=== PATIENT | male | born 1935 | race Caucasian/White ===

== ENCOUNTER 2016-12-03 15:13 | Emergency (ER) | payer MEDICARE, OTHER ==
[2016-12-03] MEDS ORDERED: Ipratropium 0.5MG/2.5ML NEB* 0.5 MG/2.5 ML NEB.SOLN INH ONE (16:04)
[2016-12-03] MEDS ORDERED: Albuterol 2.5 MG/3 ML NEB.SOL* (0.083%) INH ONE (16:04)
[2016-12-03] MEDS ORDERED: Acetaminophen TAB* 325 MG PO ONE (16:04)
--- NOTE | 2016-12-03 16:14 | UC ---
Respiratory Complaint HPI - HPI Summary HPI Summary: Pt c/o cough, fever, chest pain, SOB X 3 days. Feels worse today. Has history of pneumonia - History of Current Complaint Chief Complaint: UCRespiratory Stated Complaint: COUGH,FEVER Time Seen by Provider: 12/03/16 15:48 Hx Obtained From: Patient Onset/Duration: Gradual Onset, Lasting Days, Worse Since - onset Timing: Constant Severity Initially: Mild Severity Currently: Moderate Character: Cough: Productive - clear Aggravating Factors: Recumbent Position Alleviating Factors: Nothing Associated Signs And Symptoms: Positive: Fever, Chills, URI, Nasal Congestion - Risk Factors Pulmonary Embolism Risk Factors: Negative Cardiac Risk Factors: Hypertension, Elevated Lipids Pseudomonas Risk Factors: Negative - Allergies/Home Medications Allergies/Adverse Reactions: Allergies Allergy/AdvReac Type Severity Reaction Status Date / Time No Known Allergies Allergy Verified 12/03/16 15:46 Home Medications: Home Medications Ascorbic Acid TAB* [Vitamin C TAB*] 2,000 mg PO DAILY 12/03/16 [History Confirmed 12/03/16] Rx Nasal [place]* 12/03/16 [History] guaiFENesin ER TAB [Mucinex*] PRN 12/03/16 [History] PMH/Surg Hx/FS Hx/Imm Hx Previously Healthy: No - see PMH Endocrine History Of: Denies: Diabetes, Thyroid Disease Cardiovascular History Of: Reports: Hypertension - meds Denies: Cardiac Disorders, Pacemaker/ICD Respiratory History Of: Reports: Asthma - prior to WW II Denies: COPD GI/ History Of: Denies: Ulcer, Renal Disease - Surgical History Surgical History: Yes Surgery Procedure, Year, and Place: Bilateral Knees- REPLACEMENTS, [place]ig[place] Shawn, . SINUS - Family History Known Family History: Positive: Cardiac Disease, Hypertension - Social History Lives: With Family Alcohol Use: Occasionally Alcohol Amount: Glass of wine Substance Use Type: None Smoking Status (MU): Former Smoker Type: Cigarettes Amount Used/How Often: 1 PPD Length of Time of Smoking/Using Tobacco: 5-6 years Have You Smoked in the Last Year: No - Immunization History Most Recent Influenza Vaccination: 08/2014 Review of Systems Constitutional: Fever, Chills, Fatigue Skin: Negative Eyes: Negative ENT: Other - nasal congestion Respiratory: Shortness Of Breath, Cough Cardiovascular: Chest Pain Gastrointestinal: Negative Genitourinary: Negative Motor: Negative Neurovascular: Negative Musculoskeletal: Myalgia Neurological: Negative Psychological: Negative All Other Systems Reviewed And Are Negative: Yes Physical Exam Triage Information Reviewed: Yes Appearance: Ill-Appearing Vital Signs: Initial Vital Signs Temp 100.2 F 12/03/16 15:42 Pulse 85 12/03/16 15:42 Resp 20 12/03/16 15:42 BP 109/63 12/03/16 15:42 Pulse Ox 94 12/03/16 15:42 Vital Signs Reviewed: Yes ENT Exam: Other ENT: Positive: Nasal congestion Neck exam: Normal Respiratory: Positive: Decreased breath sounds - bilateral bases Cardiovascular Exam: Normal Musculoskeletal Exam: Normal Neurological Exam: Normal Psychological Exam: Normal Skin Exam: Normal UC Diagnostic Evaluation - Laboratory O2 Sat by Pulse Oximetry: 94 Respiratory Course/Dx - Course Course Of Treatment: I reviewed the EKG with the patient and though the EKG does not reveal an acute cardiac event we can not rule that out and have recommended that the pt seek care at the Emergency Department. - Differential Dx/Diagnosis Differential Diagnosis/HQI/PQRI: Pulmonary Embolism, Other - pneumonia, IA Provider Diagnoses: pneumonia. Chest pain - Physician Notification/Consults Discussed Patient Care With: Rosa Frias at [facility]. Time Discussed With Above Provider: 17:47 - pt accepted at [facility] ED Discharge - Discharge Plan Condition: Stable Disposition: HOME Prescriptions: Albuterol HFA INHALER* [Ventolin HFA Inhaler*] 1 - 2 puff INH Q4H PRN #1 mdi PRN Reason: Sob/Wheezing Azithromycin TAB* [Zithromax TAB (Z-TARI) 250 mg #6 tabs] 2 tab PO .TODAY, THEN 1 DAILY #1 tari predniSONE TAB* [Deltasone TAB*] 30 mg PO DAILY #12 tab Patient Education Materials: Pneumonia (ED) Referrals: Marissa Anderson [Primary Care Provider] - Additional Instructions: Please note that you have been recommend to go to the Emergency room for immediate follow up care.
--- NOTE | 2016-12-03 16:31 | RAD ---
INDICATION: Cough and fever. COMPARISON: Comparison is made with a prior chest x-ray study from April 24, 2015. TECHNIQUE: Dual-energy PA and lateral views of the chest were obtained. FINDINGS: The heart is within normal limits in size. Mediastinal and hilar contours appear within normal limits. The lungs are underinflated. There are small bibasilar infiltrates. No pleural effusion is seen. There is flattening of the diaphragms consistent with chronic character pulmonary disease. IMPRESSION: EXPIRATORY EXAM, SMALL BIBASILAR INFILTRATES.
[2016-12-03] MEDS ORDERED: Azithromycin TAB* 250 MG PO ONE (16:56)
[2016-12-03 17:24] VITALS: BP 130/56
== END 2016-12-03 17:10 | disposition left against medical advice (07) ==
LOC: UCEAST 15:13
DX: J18.9 Pneumonia, unspecified organism (principal); R07.89 Other chest pain; I10 Essential (primary) hypertension; Z96.653 Presence of artificial knee joint, bilateral; Z87.891 Personal history of nicotine dependence
CPT/HCPCS: 71020; 93005; 99213; A9270-GY; G0463; J7644

== ENCOUNTER → 2016-12-03 18:00 | Emergency (ER) | payer MEDICARE, OTHER ==
[~2016-12-03 18:00] MED LIST: Aspirin Low Dose CHEW TAB* 81 MG PO ONE; methylPREDNISolone 125 MG* 2 ML VIAL IV ONE
[2016-12-03 18:59] LABS: Hematocrit 42 % (42-52); Mean Corpuscular HGB Conc 33 g/dl (31-36); Mean Corpuscular Hemoglobin 29 pg (27-31); Mean Corpuscular Volume 89 fL (80-94); Mean Platelet Volume 8 um3 (7.4-10.4); Red Blood Count 4.76 10^6/ul (4.0-5.4); Red Cell Distribution Width 15 % (10.5-15); White Blood Count 6.4 10^3/ul (3.5-10.8)
[2016-12-03 19:12] LABS: Albumin 3.9 g/dL (3.2-5.2); BUN/Creatinine Ratio 13.7 (8-20); EGFR African American 89.9 (>60); EGFR Non-African American 69.9 (>60); Globulin 2.4 g/dL (2-4); Potassium 3.9 mmol/L (3.5-5.0); Total Bilirubin 0.6 mg/dL (0.2-1.0); Total Protein 6.3 g/dL (6.4-8.9); Troponin I 0.01 ng/mL (<0.04)
--- NOTE | 2016-12-03 20:09 | ED ---
Primo Bonner Janilya, scribed for Karlos Rabago MD on 12/03/16 at 1840 . Respiratory - HPI Summary HPI Summary: A 81 y/o male came in to [facility] presenting w/ a gradual onset of constant CP due to severe cough starting 4-5 days. Pt reports his chest feels painful and it is "a struggle to cough things up". Pt has a cough that produces clear, white, and sometimes yellowish phlegm. In addition, pt reports fever. Pt visited [facility] and had CXR and EKG done. There, he was diagnosed with pneumonia. Pt was recommended a breathing nebulizer, which he used. It alleviated his condition. Pt feels better now; his CP is "diminishing rapidly". PMHx asthma, for which pt uses inhaler. - History of Current Complaint Chief Complaint: EDChestPainROMI Stated Complaint: CHEST PAIN/CONV CARE Time Seen by Provider: 12/03/16 18:26 Hx Obtained From: Patient Onset/Duration: Gradual Onset, Lasting Days, Still Present Initial Severity: Moderate Current Severity: Moderate Pain Intensity: 0 Character: Cough (Productive) Sputum Color: Clear, White, Yellow Aggravating Factor(s): Nothing Alleviating Factor(s): Oxygen Associated Signs and Symptoms: Fever, Chest Pain with Cough - Allergy/Home Medications Allergies/Adverse Reactions: Allergies Allergy/AdvReac Type Severity Reaction Status Date / Time No Known Allergies Allergy Verified 12/03/16 15:46 PMH/Surg Hx/FS Hx/Imm Hx Endocrine/Hematology History: Denies: Hx Diabetes, Hx Thyroid Disease Cardiovascular History: Reports: Hx Hypertension - meds Denies: Hx Pacemaker/ICD Respiratory History: Reports: Hx Asthma - prior to WW II Denies: Hx Chronic Obstructive Pulmonary Disease (COPD) GI History: Denies: Hx Ulcer History: Denies: Hx Renal Disease Sensory History: Denies: Hx Hearing Aid Psychiatric History: Denies: Hx Panic Disorder - Cancer History Cancer Type, 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 SINUS Infectious Disease History: No Infectious Disease History: Denies: Hx Clostridium Difficile, Hx Hepatitis, Hx Human Immunodeficiency Virus (HIV), Hx of Known/Suspected MRSA, Hx Shingles, Hx Tuberculosis, Hx Known/ Suspected VRE, Hx Known/Suspected VRSA, History Other Infectious Disease, Traveled Outside the [place] in Last 30 Days - Family History Known Family History: Positive: Cardiac Disease, Hypertension - Social History Alcohol Use: Occasionally Alcohol Amount: Glass of wine Substance Use Type: Reports: None Smoking Status (MU): Former Smoker Type: Cigarettes Amount Used/How Often: 1 PPD Length of Time of Smoking/Using Tobacco: 5-6 years Have You Smoked in the Last Year: No Review of Systems Positive: Fever Positive: Chest Pain Positive: Cough All Other Systems Reviewed And Are Negative: Yes Physical Exam Triage Information Reviewed: Yes Vital Signs On Initial Exam: Initial Vitals Temp Pulse Resp BP Pulse Ox 99.2 F 95 16 141/65 95 12/03/16 18:04 12/03/16 18:04 12/03/16 18:04 12/03/16 18:04 12/03/16 18:04 Vital Signs Reviewed: Yes Appearance: Positive: Well-Appearing, No Pain Distress Skin: Positive: Warm, Skin Color Reflects Adequate Perfusion, Dry Head/Face: Positive: Normal Head/Face Inspection Eyes: Positive: Normal ENT: Positive: Normal ENT inspection Neck: Positive: Supple, Nontender Respiratory/Lung Sounds: Positive: Clear to Auscultation, Breath Sounds Present Cardiovascular: Positive: RRR Abdomen Description: Positive: Nontender, Soft Bowel Sounds: Positive: Present Musculoskeletal: Positive: Normal Neurological: Positive: Normal Psychiatric: Positive: Normal, Affect/Mood Appropriate Diagnostics - Vital Signs Vital Signs Temp Pulse Resp BP Pulse Ox 12/03/16 18:24 88 13 93 12/03/16 18:22 119/43 12/03/16 18:04 99.2 F 95 16 141/65 95 - Laboratory Lab Results: Lab Results 12/03/16 12/03/16 12/03/16 Range/Units 18:25 18:25 18:25 WBC 6.4 (3.5-10.8) 10^3/ul RBC 4.76 (4.0-5.4) 10^6/ul Hgb 14.0 (14.0-18.0) g/dl Hct 42 (42-52) % MCV 89 (80-94) fL MCH 29 (27-31) pg MCHC 33 (31-36) g/dl RDW 15 (10.5-15) % Plt Count 166 (150-450) 10^3/ul MPV 8 (7.4-10.4) um3 Neut % (Auto) 63.0 (38-83) % Lymph % (Auto) 23.7 L (25-47) % Kerr % (Auto) 9.4 H (1-9) % Eos % (Auto) 3.3 (0-6) % Baso % (Auto) 0.6 (0-2) % Absolute Neuts (auto) 4.0 (1.5-7.7) 10^3/ul Absolute Lymphs (auto) 1.5 (1.0-4.8) 10^3/ul Absolute Monos (auto) 0.6 (0-0.8) 10^3/ul Absolute Eos (auto) 0.2 (0-0.6) 10^3/ul Absolute Basos (auto) 0 (0-0.2) 10^3/ul Absolute Nucleated RBC 0 10^3/ul Nucleated RBC % 0.1 Sodium 137 (133-145) mmol/L Potassium 3.9 (3.5-5.0) mmol/L Chloride 106 (101-111) mmol/L Carbon Dioxide 24 (22-32) mmol/L Anion Gap 7 (2-11) mmol/L BUN 14 (6-24) mg/dL Creatinine 1.02 (0.67-1.17) mg/dL Est GFR ( Amer) 89.9 (>60) Est GFR (Non-Af Amer) 69.9 (>60) BUN/Creatinine Ratio 13.7 (8-20) Glucose 176 H (70-100) mg/dL Lactic Acid 1.4 (0.5-2.0) mmol/L Calcium 9.0 (8.6-10.3) mg/dL Total Bilirubin 0.60 (0.2-1.0) mg/dL AST 22 (13-39) U/L ALT 16 (7-52) U/L Alkaline Phosphatase 44 (34-104) U/L Troponin I 0.01 (<0.04) ng/mL B-Natriuretic Peptide ( - 100) pg/mL Total Protein 6.3 L (6.4-8.9) g/dL Albumin 3.9 (3.2-5.2) g/dL Globulin 2.4 (2-4) g/dL Albumin/Globulin Ratio 1.6 (1-3) 12/03/16 Range/Units 18:25 WBC (3.5-10.8) 10^3/ul RBC (4.0-5.4) 10^6/ul Hgb (14.0-18.0) g/dl Hct (42-52) % MCV (80-94) fL MCH (27-31) pg MCHC (31-36) g/dl RDW (10.5-15) % Plt Count (150-450) 10^3/ul MPV (7.4-10.4) um3 Neut % (Auto) (38-83) % Lymph % (Auto) (25-47) % Kerr % (Auto) (1-9) % Eos % (Auto) (0-6) % Baso % (Auto) (0-2) % Absolute Neuts (auto) (1.5-7.7) 10^3/ul Absolute Lymphs (auto) (1.0-4.8) 10^3/ul Absolute Monos (auto) (0-0.8) 10^3/ul Absolute Eos (auto) (0-0.6) 10^3/ul Absolute Basos (auto) (0-0.2) 10^3/ul Absolute Nucleated RBC 10^3/ul Nucleated RBC % Sodium (133-145) mmol/L Potassium (3.5-5.0) mmol/L Chloride (101-111) mmol/L Carbon Dioxide (22-32) mmol/L Anion Gap (2-11) mmol/L BUN (6-24) mg/dL Creatinine (0.67-1.17) mg/dL Est GFR ( Amer) (>60) Est GFR (Non-Af Amer) (>60) BUN/Creatinine Ratio (8-20) Glucose (70-100) mg/dL Lactic Acid (0.5-2.0) mmol/L Calcium (8.6-10.3) mg/dL Total Bilirubin (0.2-1.0) mg/dL AST (13-39) U/L ALT (7-52) U/L Alkaline Phosphatase (34-104) U/L Troponin I (<0.04) ng/mL B-Natriuretic Peptide 35 ( - 100) pg/mL Total Protein (6.4-8.9) g/dL Albumin (3.2-5.2) g/dL Globulin (2-4) g/dL Albumin/Globulin Ratio (1-3) Result Diagrams: 12/03/16 18:25 12/03/16 18:25 Lab Statement: Any lab studies that have been ordered have been reviewed, and results considered in the medical decision making process. - EKG 1622 Cardiac Rate: NL - at 84 bpm EKG Rhythm: Sinus Rhythm Disposition - Course Course Of Treatment: Wilbur Paiz Presented with a few days of coughing and was specifically C/O having more and more chest pain with coughing. He was seen at [facility] and given a nebulized and feels a lot better and says his chest feels better. He was given his first dose of steroids IV here and his trop was negative. - Diagnoses Provider Diagnoses: Pneumonia, Chest wall pain Discharge - Discharge Plan Condition: Stable Disposition: HOME Patient Education Materials: Pneumonia (ED), Chest Pain (ED) Referrals: Amy Velazquez MD [Primary Care Provider] - Additional Instructions: Follow up with your primary care provider if symptoms persist or worsen. The documentation as recorded by the Primo bolden Janilya accurately reflects the service I personally performed and the decisions made by me, Karlos Rabago MD.
[2016-12-03 20:40] VITALS: BP 117/62
== END | disposition home or self-care (01) ==
LOC: ED 18:00
DX: J18.9 Pneumonia, unspecified organism (principal); R07.89 Other chest pain; R05 Cough; R07.9 Chest pain, unspecified; Z87.891 Personal history of nicotine dependence
CPT/HCPCS: 36415; 71020; 80053; 83605; 83880; 84484; 85025; 93005; 96374; 99213; 99283; A9270-GY; G0463; J2930; J7644

== ENCOUNTER 2016-12-11 11:56 | Emergency (ER) | payer MEDICARE, OTHER ==
[2016-12-11 13:38] VITALS: BP 138/64
--- NOTE | 2016-12-11 14:08 | RAD ---
INDICATION: Choking episode. COMPARISON: Comparison is made with a prior chest x-ray study from December 03, 2016. TECHNIQUE: Dual-energy PA and lateral views of the chest were obtained. FINDINGS: The heart is upper limits of normal in size and unchanged from the prior exam. The lungs are clear. There is flattening of the diaphragms consistent with chronic obstructive pulmonary disease. No pleural effusion is seen. IMPRESSION: FINDINGS CONSISTENT WITH COPD, NO EVIDENCE FOR ACUTE FINDING.
--- NOTE | 2016-12-11 19:50 | ED ---
Leobardo Bonner Adam, scribed for Karlos Rabago MD on 12/11/16 at 1300 . Respiratory - HPI Summary HPI Summary: Pt is an 81 year old male presenting with an episode of aspiration this morning. He states that he was taking his regular medication between 11:00 and 12:00 when he swallowed a pill and began coughing. He states that he coughed up some yellow substance which matched the color of the pill, but he is concerned that there could still be something lodged in his throat. He is also feeling more congested since the episode of coughing. - History of Current Complaint Chief Complaint: EDRespiratoryDistress Stated Complaint: MEDS POSS STUCK IN THROAT Time Seen by Provider: 12/11/16 12:48 Hx Obtained From: Patient Onset/Duration: Sudden Onset, Lasting Minutes, Resolved Initial Severity: Moderate Current Severity: None Pain Intensity: 0 Character: Cough (Productive) Sputum Amount: Small Sputum Color: Clear Aggravating Factor(s): Nothing Alleviating Factor(s): Nothing - Allergy/Home Medications Allergies/Adverse Reactions: Allergies Allergy/AdvReac Type Severity Reaction Status Date / Time No Known Allergies Allergy Verified 12/03/16 15:46 PMH/Surg Hx/FS Hx/Imm Hx Endocrine/Hematology History: Denies: Hx Diabetes, Hx Thyroid Disease Cardiovascular History: Reports: Hx Hypertension - meds Denies: Hx Pacemaker/ICD Respiratory History: Reports: Hx Asthma - prior to WW II Denies: Hx Chronic Obstructive Pulmonary Disease (COPD) GI History: Denies: Hx Ulcer History: Denies: Hx Renal Disease Sensory History: Denies: Hx Hearing Aid Psychiatric History: Denies: Hx Panic Disorder - Cancer History Cancer Type, 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 SINUS Infectious Disease History: No Infectious Disease History: Denies: Hx Clostridium Difficile, Hx Hepatitis, Hx Human Immunodeficiency Virus (HIV), Hx of Known/Suspected MRSA, Hx Shingles, Hx Tuberculosis, Hx Known/ Suspected VRE, Hx Known/Suspected VRSA, History Other Infectious Disease, Traveled Outside the [place] in Last 30 Days - Family History Known Family History: Positive: Cardiac Disease, Hypertension - Social History Occupation: Retired Lives: With Family Alcohol Use: Occasionally Alcohol Amount: Glass of wine Hx Substance Use: No Substance Use Type: Reports: None Hx Tobacco Use: Yes Smoking Status (MU): Former Smoker Type: Cigarettes Amount Used/How Often: 1 PPD Length of Time of Smoking/Using Tobacco: 5-6 years Have You Smoked in the Last Year: No Review of Systems Positive: Other - Congestion Positive: Cough, Other - Aspirated on pill All Other Systems Reviewed And Are Negative: Yes Physical Exam Triage Information Reviewed: Yes Vital Signs On Initial Exam: Initial Vitals Temp Pulse Resp BP Pulse Ox 97.9 F 87 20 143/66 94 12/11/16 12:06 12/11/16 12:06 12/11/16 12:06 12/11/16 12:06 12/11/16 12:06 Vital Signs Reviewed: Yes Appearance: Positive: Well-Appearing, No Pain Distress Skin: Positive: Warm, Skin Color Reflects Adequate Perfusion, Dry Head/Face: Positive: Normal Head/Face Inspection Eyes: Positive: Normal ENT: Positive: Normal ENT inspection Neck: Positive: Supple, Nontender Respiratory/Lung Sounds: Positive: Clear to Auscultation, Breath Sounds Present Cardiovascular: Positive: RRR Abdomen Description: Positive: Nontender, Soft Bowel Sounds: Positive: Present Musculoskeletal: Positive: Normal Neurological: Positive: Normal Psychiatric: Positive: Normal, Affect/Mood Appropriate - Guzman Coma Scale Coma Scale Total: 15 Diagnostics - Vital Signs Vital Signs Temp Pulse Resp BP Pulse Ox 12/11/16 12:13 20 12/11/16 12:06 97.9 F 87 20 143/66 94 - Laboratory Lab Statement: Any lab studies that have been ordered have been reviewed, and results considered in the medical decision making process. - Radiology CXR Radiology Interpretation Completed By: Radiologist - IMPRESSION: FINDINGS CONSISTENT WITH COPD, NO EVIDENCE FOR ACUTE FINDING. Disposition - Course Course Of Treatment: Mr. Paiz apparently aspirated a turmeric gel cap and had some paroxismal coughing bring up yellow sputum and some plastic like pieces. He feels a lot better now and his CXR is normal. I will D/C him for expectant treatment and we discussed fever etc. - Diagnoses Provider Diagnoses: Aspiration Discharge - Discharge Plan Condition: Stable Disposition: HOME Patient Education Materials: Dyspnea (ED) Referrals: Amy Velazquez MD [Primary Care Provider] - Additional Instructions: Follow up with Dr. Velazquez. The documentation as recorded by the Leobardo bolden Adam accurately reflects the service I personally performed and the decisions made by me, Karlos Rabago MD.
== END 2016-12-11 14:52 | disposition home or self-care (01) ==
LOC: ED 11:56
DX: R05 Cough (principal); J44.9 Chronic obstructive pulmonary disease, unspecified; Z87.891 Personal history of nicotine dependence
CPT/HCPCS: 71020; 99283

== ENCOUNTER 2017-10-26 08:39 | Emergency (ER) | payer MEDICARE, OTHER ==
[2017-10-26 10:40] VITALS: BP 109/63
--- NOTE | 2017-10-26 11:04 | UC ---
Respiratory Complaint HPI - HPI Summary HPI Summary: 2 DAYS OF WORSENING COUGH AND CONGESTION. NO FEVER, EAR PAIN, N/V/D. REPORTS HE HAS A TENDENCY TO PROGRESS TO "WALKING PNEUMONIA" AND IS CONCERNED THIS WILL HAPPEN AGAIN WITH THIS ILLNESS. - History of Current Complaint Chief Complaint: UCRespiratory Stated Complaint: CHEST CONGESTION Time Seen by Provider: 10/26/17 10:53 Hx Obtained From: Patient Onset/Duration: Gradual Onset, Lasting Days, Still Present Timing: Constant Severity Initially: Moderate Severity Currently: Moderate Pain Intensity: 0 Pain Scale Used: 0-10 Numeric Character: Cough: Productive Aggravating Factors: Nothing Alleviating Factors: Nothing Associated Signs And Symptoms: Positive: URI, Nasal Congestion. Negative: Dyspnea, Fever, Pleuritic Chest Pain, Wheezing - Allergies/Home Medications Allergies/Adverse Reactions: Allergies Allergy/AdvReac Type Severity Reaction Status Date / Time No Known Allergies Allergy Verified 10/26/17 08:48 Home Medications: Home Medications Albuterol HFA INHALER* [Ventolin HFA Inhaler*] 1 puff INH Q6HR PRN 10/26/17 [ History Confirmed 10/26/17] Ascorbic Acid TAB* [Vitamin C TAB*] 500 mg PO DAILY 10/26/17 [History Confirmed 10/26/17] Aspirin EC Low Dose* [Ecotrin EC Low Dose 81 MG*] 81 mg PO DAILY 10/26/17 [ History Confirmed 10/26/17] Rosuvastatin Calcium [Crestor] 20 mg PO DAILY 10/26/17 [History Confirmed ] Sertraline* [Zoloft*] 100 mg PO BEDTIME 10/26/17 [History Confirmed 10/26/17] Telmisartan [Micardis] 0.5 mg PO DAILY 10/26/17 [History Confirmed 10/26/17] PMH/Surg Hx/FS Hx/Imm Hx Cardiovascular History: Hypertension - Surgical History Surgical History: Yes Surgery Procedure, Year, and Place: Bilateral Knees- REPLACEMENTS, Lantigua Shanw, . SINUS - Family History Known Family History: Positive: Cardiac Disease, Hypertension - Social History Alcohol Use: Occasionally Alcohol Amount: Glass of wine Substance Use Type: None Smoking Status (MU): Former Smoker Type: Cigarettes Amount Used/How Often: 1 PPD Length of Time of Smoking/Using Tobacco: 5-6 years Have You Smoked in the Last Year: No - Immunization History Most Recent Influenza Vaccination: 08/2014 Review of Systems Constitutional: Negative ENT: Nasal Discharge Respiratory: Cough Cardiovascular: Negative Gastrointestinal: Negative Neurological: Headache All Other Systems Reviewed And Are Negative: Yes Physical Exam Triage Information Reviewed: Yes Appearance: Well-Appearing, No Pain Distress, Well-Nourished Vital Signs: Initial Vital Signs Temp 97 F 10/26/17 08:53 Pulse 79 10/26/17 08:53 Resp 16 10/26/17 08:53 BP 118/53 10/26/17 08:53 Pulse Ox 100 10/26/17 08:53 Vital Signs Reviewed: Yes Eyes: Positive: Conjunctiva Clear ENT: Positive: Hearing grossly normal, Pharynx normal, TMs normal Neck: Positive: Supple, Nontender, No Lymphadenopathy Respiratory Exam: Normal Cardiovascular Exam: Normal Abdomen Description: Positive: Soft Musculoskeletal: Positive: No Edema Neurological: Positive: Alert Psychological: Positive: Age Appropriate Behavior Skin: Negative: rashes UC Diagnostic Evaluation - Laboratory O2 Sat by Pulse Oximetry: 97 Respiratory Course/Dx - Differential Dx/Diagnosis Provider Diagnoses: ACUTE URI Discharge - Discharge Plan Condition: Stable Disposition: HOME Prescriptions: Azithromycin [Azithromycin 500 MG TAB] 500 mg PO DAILY #5 tab Patient Education Materials: Upper Respiratory Infection (ED), Acute Bronchitis (ED) Referrals: Amy Velazquez MD [Primary Care Provider] - If Needed Additional Instructions: YOUR SYMPTOMS MAY BE VIRALLY MEDIATED BUT GIVEN YOUR HISTORY AND CONCERN FOR PROGRESSION TO PNEUMONIA WE WILL COVER YOU WITH ANTIBIOTICS. IF YOU START THE MEDICINE BE SURE TO TAKE IT FOR THE FULL COURSE. REST, HYDRATE, OTC MEDS NEEDED. SEEK FOLLOW-UP WITH YOUR PCP IF YOU ARE NOT IMPROVING OVER THE NEXT 1-2 WEEKS.
== END 2017-10-26 11:24 | disposition home or self-care (01) ==
LOC: UCEAST 08:39
DX: J06.9 Acute upper respiratory infection, unspecified (principal); Z72.89 Other problems related to lifestyle; Z87.891 Personal history of nicotine dependence
CPT/HCPCS: 99212; G0463

== ENCOUNTER 2017-11-27 17:28 | Observation (INO) | payer MEDICARE, OTHER ==
[2017-11-27] MEDS ORDERED: Nitroglycerin TAB 0.4 MG* 0.4 MG TAB SL ONE (17:51)
[2017-11-27] MEDS ORDERED: Aspirin TAB* 325 MG PO ONE (17:51)
[2017-11-27 19:12] LABS: ABS Basophils 0 10^3/ul (0-0.2); ABS Eosinophils 0.1 10^3/ul (0-0.6); ABS Lymphocytes 2.1 10^3/ul (1.0-4.8); ABS Monocytes 0.7 10^3/ul (0-0.8); ABS Neutrophils 5.2 10^3/ul (1.5-7.7); ABS Nucleated RBC 0 10^3/ul; Eosinophil % 1.6 % (0-6); Hematocrit 43 % (42-52); Hemoglobin 14.7 g/dl (14.0-18.0); Lymphocyte % 25.9 % (25-47); Mean Corpuscular HGB Conc 35 g/dl (31-36); Mean Corpuscular Hemoglobin 31 pg (27-31); Mean Corpuscular Volume 88 fL (80-94); Mean Platelet Volume 8 um3 (7.4-10.4); Nucleated Red Blood Cells % 0; Platelet Count 196 10^3/ul (150-450); Red Blood Count 4.82 10^6/ul (4.0-5.4); Red Cell Distribution Width 15 % (10.5-15); White Blood Count 8.1 10^3/ul (3.5-10.8)
--- NOTE | 2017-11-27 19:19 | RAD ---
INDICATION: 2-3 days of fluctuating blood pressure and chest pressure COMPARISON: Chest x-ray dated November 06, 2017 TECHNIQUE: Single AP portable view of the chest was obtained. FINDINGS: Image quality is compromised due to the relative inferiority of a portable chest x-ray. The heart and mediastinum exhibit normal size and contour. The lungs are grossly clear. There is no evidence of a large pleural effusion. Visualized bones are normal for the patient's age. IMPRESSION: No radiographic evidence for acute cardiopulmonary abnormality on this portable chest x-ray.
[2017-11-27 19:30] LABS: EGFR Non-African American 89.7 (>60)
[2017-11-27] MEDS ORDERED: Acetaminophen TAB* 325 MG PO PRN (21:46)
[2017-11-27] MEDS ORDERED: Nitroglycerin TAB 0.4 MG* 0.4 MG TAB SL PRN (21:49)
[2017-11-27] MEDS: Heparin VIAL(*) 5000 UNITS/ML VIAL (FIVE THOUSAND) SUBCUT SCH (23:00)
[2017-11-27] MEDS ORDERED: NS 0.9% 1000 ML* 1,000 ML IV SCH (23:59)
--- NOTE | 2017-11-28 00:34 | HP ---
CC: Dr. Amy Velazquez * ADMISSION HISTORY AND PHYSICAL: DATE OF ADMISSION: 11/27/17 PRIMARY CARE PROVIDER: Dr. Amy Velazquez. MY ATTENDING WHILE IN THE HOSPITAL: Dr. Kolton Jacome.* (DICTATED BY LIVIA MAJOR) CHIEF COMPLAINT: Chest pain x2 days. HISTORY OF PRESENT ILLNESS: The patient is an 82-year-old male with past medical history significant for hypertension, hypothyroidism, hyperlipidemia, impaired glucose tolerance and depression, who presents with 2 days of constant chest tightness with occasional shortness of breath, not brought on by exertion. The patient, however, is dizzy in the morning when he stands up, but it is not persistent. The patient also has intermittent palpitations, worst this afternoon. The patient feels like his heart occasionally skips a beat. The patient recently had changes in his medications, which we cannot describe, but when discussing his medications with him, he said that he believes he was starting the losartan and Crestor. The patient denies other symptoms to go along with chest pain including nausea, vomiting, diaphoresis. The patient had a recent hemoglobin A1c and lipid panel through his primary care provider, but does not remember the results. The patient has no other symptoms. The patient has no past medical history of myocardial infarction or chest pain. PAST MEDICAL HISTORY: Hypertension, depression, hypothyroidism, hyperlipidemia , and impaired glucose tolerance. PAST SURGICAL HISTORY: Bilateral knee replacements, sinus surgery. MEDICATIONS: 1. Aspirin 81 mg p.o. daily. 2. Losartan 50 mg p.o. daily. 3. Synthroid 25 mcg p.o. daily. 4. Metoprolol 50 mg p.o. b.i.d. 5. Sertraline 100 mg p.o. daily. 6. Crestor 10 mg p.o. daily. 7. Celadrin. 8. Multivitamin. ALLERGIES: No known drug allergies. FAMILY HISTORY: The patient's father had heart disease. The patient's mother had ovarian cancer and of that. The patient does not have any other family history that he can think of. SOCIAL HISTORY: The patient was a former smoker, but quit 60 years ago. The patient used to drink a glass of wine a night, but no longer does in an attempt to lose weight. The patient denies any illicit drug use. 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 The patient is and has 2 children. REVIEW OF SYSTEMS: A 14-point review of systems was conducted and is negative except as above. PHYSICAL EXAMINATION GENERAL: The patient is an 82-year-old male who appears stated age and sitting comfortably in bed, in no acute distress. VITAL SIGNS: Temperature 99.2, heart rate 78, respiratory rate 20, oxygen saturation 97% on room air, and blood pressure 155/64. HEENT: Head: Normocephalic, atraumatic. Sclerae anicteric. No conjunctival injection. Nasal mucosa moist. Oral mucosa moist. No pharyngeal erythema, exudate, or discharge. NECK: Supple, nontender. No lymphadenopathy. No carotid bruit auscultated. RESPIRATORY: Clear to auscultation bilaterally. No wheezes, rales, or rhonchi. CARDIAC: Regular rate and rhythm. No clicks, murmurs, gallops, or rubs. Pulses 2+ in the bilateral dorsalis pedis, posterior tibialis, and radial areas. ABDOMEN: Soft, nontender, distended without tenderness. Bowel sounds present and normoactive in all 4 quadrants. No hepatosplenomegaly. No abdominal bruits auscultated. EXTREMITIES: No edema noted in bilateral lower extremities. NEUROLOGIC: Cranial nerves II through XII grossly intact. No focal deficits. SKIN: Clean, dry, and intact. Significant burden of seborrhoic keratosis. No rash. PSYCHIATRIC: Pleasant and cooperative. LABORATORY DATA: White blood cell count 8.1, hemoglobin 14.7, hematocrit 43, MCV 88, MCH 31, MCHC 35, RDW 15, platelet count 196. Sodium 138, potassium 4.5 , chloride 105, carbon dioxide 28, anion gap 5, BUN 19, creatinine 0.82, glucose 92, lactic acid 0.8, calcium 9.1. Bilirubin 0.5, AST 17, ALT 13, alkaline phosphatase 46. Troponin-I 0.00 x2. Total protein 6.1, albumin 3.7, globulin 2.4, albumin/globulin ratio 1.5. DIAGNOSTIC STUDIES: Electrocardiogram shows normal sinus rhythm, single PVC, no ST segment changes. No abnormalities. Tele in the room shows frequent PVCs. Chest x- ray shows no radiographic evidence for acute cardiopulmonary abnormality. IMPRESSION: The patient is an 82-year-old male with past medical history significant for hypertension, hyperlipidemia, impaired glucose tolerance, who presents with 2 days of chest pain without palliating and provoking factors. The patient has significant risk factors for coronary artery disease based on age, lipid profile and aspirin use and impaired glucose tolerance. The patient will be admitted overnight for telemetry monitoring and a nuclear stress test in the morning. ASSESSMENT AND PLAN: 1. Chest pain. The patient's chest pain sounds suspicious for cardiac origin. The patient received aspirin while in the emergency room and nitroglycerin, which helped to relieve his pain. The patient will be continued on aspirin, will have nitroglycerin available as needed. The patient is currently chest pain free. The patient will have a nuclear medicine stress test done in the morning to assess for ischemia. The patient's metoprolol will be held. 2. Hypertension. The patient is borderline hypertensive intermittently while in the emergency room. Continue losartan, hold metoprolol. 3. Hyperlipidemia. Continue Crestor and I will substitute to Lipitor. 4. Hypothyroidism. Continue Synthroid. 5. Depression. Continue sertraline. The patient is currently euthymic. 6. DVT prophylaxis. Heparin subcu. The patient is a high risk. 7. FEN. The patient will have a heart healthy diet without caffeine, followed by n.p.o. after midnight with fluids at 75 mL an hour. 8. Code status. The patient would like to be a DNR. The patient's MOLST filled out and on the chart. The patient's , Natali Turcios is his surrogate decision maker. 9. Disposition. The patient is admitted to observation to telemetry for a stress test. TIME SPENT: Approximately 60 minutes were spent on this admission, 30 of which were spent [id number] with the patient obtaining history and physical and discussing treatment plan. This plan was discussed with my attending, Dr. Kolton Jacome and he is in agreement. LIVIA MAJOR [id number]/[facility] #: [id number] MTDDaisy
[2017-11-28] MEDS: Heparin VIAL(*) 5000 UNITS/ML VIAL (FIVE THOUSAND) SUBCUT SCH ×2 (05:37→13:37)
[2017-11-28 05:58] LABS: ABS Basophils 0 10^3/ul (0-0.2); ABS Eosinophils 0.2 10^3/ul (0-0.6); ABS Lymphocytes 1.7 10^3/ul (1.0-4.8); ABS Monocytes 0.5 10^3/ul (0-0.8); ABS Nucleated RBC 0 10^3/ul; Eosinophil % 2.9 % (0-6); Hematocrit 41 % (42-52); Hemoglobin 13.8 g/dl (14.0-18.0); Lymphocyte % 31.3 % (25-47); Mean Corpuscular HGB Conc 34 g/dl (31-36); Mean Corpuscular Hemoglobin 30 pg (27-31); Mean Corpuscular Volume 89 fL (80-94); Mean Platelet Volume 8 um3 (7.4-10.4); Nucleated Red Blood Cells % 0; Platelet Count 173 10^3/ul (150-450); Red Blood Count 4.58 10^6/ul (4.0-5.4); Red Cell Distribution Width 15 % (10.5-15); White Blood Count 5.3 10^3/ul (3.5-10.8)
[2017-11-28] MEDS ORDERED: Levothyroxine TAB* 25 MCG TAB PO SCH (06:00)
[2017-11-28 06:12] LABS: EGFR Non-African American 84.9 (>60)
[2017-11-28] MEDS ORDERED: Losartan TAB* 25 MG PO SCH (09:00)
[2017-11-28] MEDS ORDERED: Aspirin EC Low Dose* 81 MG TAB.EC PO SCH (09:00)
[2017-11-28] MEDS ORDERED: Sertraline* 100 MG TAB PO SCH (09:00)
[2017-11-28] MEDS ORDERED: Regadenoson* 0.4 MG/5 ML SYRINGE ONE (12:05)
[2017-11-28] MEDS ORDERED: Aminophylline IV* 25 MG/ML 10 ML VIAL ONE (12:05)
--- NOTE | 2017-11-28 13:32 | RAD ---
Edited for charges. INDICATION: Chest pain and shortness of breath COMPARISON: Most recent chest x-ray dated November 27, 2017 TECHNIQUE: SPECT imaging was performed. Rest images were acquired following the intravenous injection of 10 millicuries of technetium 99m tetrofosmin at 0650 hours. At 1221 hours stress images were acquired following the intravenous administration of 26.82 millicuries of technetium 99m tetrofosmin. The patient received intravenous Lexiscan prior to the stress image acquisition. FINDINGS: There are no defects of the stress-induced or fixed nature. The cardiac chamber size is normal. There are no wall motion abnormalities. The ejection fraction is calculated at 64% during stress. IMPRESSION: No scintigraphic evidence of ischemia or infarction. ASSESSMENT: Low risk Based on imaging criteria from ACC/AHA 2002 Guideline Update for the Management of Patients With Chronic Stable Angina MTDD
[2017-11-28 14:23] VITALS: BP 133/68
[2017-11-28] MEDS ORDERED: Atorvastatin* 80 MG TAB PO SCH (17:00)
--- NOTE | 2017-11-29 15:06 | DS ---
CC: Dr. Amy Velazquez * DISCHARGE SUMMARY: DATE OF ADMISSION: 11/27/17 DATE OF DISCHARGE: 11/28/17 PRIMARY CARE PROVIDER: Dr. Amy Velazquez. MY ATTENDING WHILE IN THE HOSPITAL: Dr. Hernandez Velazquez.* (DICTATED BY LIVIA MAJOR) PRIMARY DISCHARGE DIAGNOSIS: Chest pain. SECONDARY DISCHARGE DIAGNOSES: 1. Hypertension. 2. Hypothyroidism. 3. Hyperlipidemia. 4. Depression. 5. Possible impaired glucose tolerance. STUDIES DONE WHILE IN THE HOSPITAL: Electrocardiogram from admission showed normal sinus rhythm, regular axis, no ST-segment changes, single PVC, QTc 420, no other abnormalities. Chest x-ray from 11/27/17 shows no radiographic evidence for acute cardiopulmonary abnormality on this portable chest x-ray. Nuclear medicine scan from 11/28/17 shows there are no defects in stress induced or fixed nature. Cardiac chamber size is normal. There are no wall motion abnormalities. Ejection fraction is calculated at 64% during stress, low risk. No scintigraphic evidence of infarction. MEDICATIONS: 1. Aspirin 81 mg p.o. daily. 2. Celadrin 1 cap p.o. daily. 3. Levothyroxine 25 mcg p.o. daily. 4. Losartan 50 mg p.o. daily. 5. Metoprolol tartrate 50 mg p.o. b.i.d. 6. Nitroglycerin 0.4 mg sublingual q.5 minutes as needed for angina 1 daily. 7. Multivitamin 1 cap p.o. daily. 8. Crestor 10 mg p.o. daily. 9. Sertraline 100 mg p.o. at bedtime. New medications at discharge: 1. Nitroglycerin. 2. Metoprolol tartrate. Medications discontinued at discharge: Metoprolol tartrate 50 mg p.o. daily. HOSPITAL COURSE: This is a brief summary of the patient's presentation. For more details, please see history and physical from LIVIA Major, on . In brief, the patient is an 82-year-old male with past medical history significant for the above who had 2 days of constant chest tightness with occasional shortness of breath with no palliating and provoking working factors , not brought in by exertion, without associating features of shortness of breath or diaphoresis. The patient also states that he was slightly dizzy in the morning when he stands up, the patient also has intermittent palpitations which have been going on for a while. The patient recently had changes to medications, but he is unsure which medications were changed. The patient had not had any chest pain similar to this previously. The patient was admitted to the hospital for chest pain rule out. The patient's telemetry showed frequent PVCs, but no sustained ventricular tachycardia. The patient had no events overnight, no complaints. The patient's chest pain resolved and did not recur after 1 nitroglycerin while in the emergency department. The patient underwent a nuclear medicine stress test, which did not provoke any chest pain and was read as above. The patient is amenable to being discharged to home on an increased dose of metoprolol for his frequent PVCs. The patient had no other questions or complaints. PHYSICAL EXAM ON DAY OF DISCHARGE: General: The patient is an 82-year-old male who appears stated age, sitting comfortably in bed, in no acute distress. Vital signs at the time of discharge: Temperature 98.6, heart rate 87, respiratory rate 20, oxygen saturation 96% on room air, blood pressure 133/68. HEENT: Head: Normocephalic, atraumatic. Sclerae anicteric. No conjunctival injection. Nasal mucosa moist. Oral mucosa moist. Lips chapped. No pharyngeal erythema, discharge, or exudates. Neck: Supple, nontender. No lymphadenopathy. No carotid bruit auscultated. Cardiac: Regular rate and rhythm. No clicks, murmurs, gallops, rubs. Pulses 2+ bilaterally in dorsalis pedis, posterior tibialis, and radial areas. Respiratory: Clear to auscultation bilaterally. No wheezes, rales, or rhonchi. Good air exchange bilaterally. Abdomen: Soft, nontender, nondistended. Bowels sounds present, normoactive in all 4 quadrants. No hepatosplenomegaly, no abdominal bruits auscultated. Genitourinary: No suprapubic tenderness or CVA tenderness. Skin : Clean, dry and intact. No rash. Neuro: Cranial nerves II through XII intact. No focal deficits. Alert and oriented x3. Psychiatric: Pleasant and cooperative. LABORATORY DATA: On day of discharge, white blood cell count 5.3, hemoglobin 13.8, hematocrit 41. Sodium 138, potassium 3.8, chloride 107, carbon dioxide 28 , anion gap 3, BUN 17, creatinine 0.86, glucose 109, hemoglobin A1c 5.9, calcium 8.6, magnesium 2.0. Laboratory data of note, troponin I 0.00 x3. Cholesterol 129, LDL cholesterol 55, HDL cholesterol 39.5, triglycerides 125. DISCHARGE PLAN: The patient will be discharged to home. The patient has good lipid panel, is slightly into the prediabetic range for his hemoglobin A1c; however, the patient already has plans for weight loss and diet change, which were discussed with him and it appeared to be a good idea. The patient is already on adequate primary prevention for myocardial infarction. The patient should follow up with his primary care provider within 1 week to discuss hospitalization and general medical management. The patient should engage in activity as tolerated with a goal of weight loss and cardiovascular conditioning. The patient should return to hospital for any recurrence of his chest pain. The patient should take nitroglycerin tablets up to three 5 minutes apart for any chest pain, but also return to the hospital even if the chest pain resolves. TIME SPENT: Approximately 60 minutes was spent on the discharge, 30 of which was spent [id number] with the patient and obtaining history and physical and discussing treatment plan. LIVIA MAJOR [id number]/[facility] #: [id number] RADHA
--- NOTE | 2017-11-30 15:56 | ED ---
rKisty Bonner Gabriel, scribed for Evan Riggins MD on 11/27/17 at 1758 . HPI Chest Pain - HPI Summary HPI Summary: This patient is a 82 year old M presenting to [facility] accompanied by his with a chief complaint of CP since this afternoon. The patient rates the pain 3/ 10 in severity and describes it as a heavy heart. Patient reports elevated blood pressure and palpitations. Patient denies radiation of pain, LE pain, Le edema and cough. Patient has a history of HLD and HTN with a family history of CAD. - History of Current Complaint Chief Complaint: EDChestPainROMI Time Seen by Provider: 11/27/17 17:51 Hx Obtained From: Patient Onset/Duration: Started Hours Ago, Still Present Time of Onset: 11:00 Timing: Constant Initial Severity: Moderate Current Severity: Moderate Pain Intensity: 3 Pain Scale Used: 0-10 Numeric Chest Pain Location: Diffuse Chest Pain Radiates: No Character: Other: - heavy heart Associated Signs and Symptoms: Positive: Negative - radiation of pain, LE pain, Le edema and cough, Other: - blood pressure and palpitations - Allergy/Home Medications Allergies/Adverse Reactions: Allergies Allergy/AdvReac Type Severity Reaction Status Date / Time No Known Allergies Allergy Verified 10/26/17 08:48 PMH/Surg Hx/FS Hx/Imm Hx Endocrine/Hematology History: Denies: Hx Diabetes, Hx Thyroid Disease Cardiovascular History: Reports: Hx Hypercholesterolemia, Hx Hypertension - meds Denies: Hx Pacemaker/ICD Respiratory History: Reports: Hx Asthma - prior to WW II Denies: Hx Chronic Obstructive Pulmonary Disease (COPD) GI History: Denies: Hx Ulcer History: Denies: Hx Renal Disease Sensory History: Denies: Hx Hearing Aid Psychiatric History: Denies: Hx Panic Disorder - Cancer History Cancer Type, 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 SINUS Infectious Disease History: No Infectious Disease History: Denies: Hx Clostridium Difficile, Hx Hepatitis, Hx Human Immunodeficiency Virus (HIV), Hx of Known/Suspected MRSA, Hx Shingles, Hx Tuberculosis, Hx Known/ Suspected VRE, Hx Known/Suspected VRSA, History Other Infectious Disease, Traveled Outside the [place] in Last 30 Days - Family History Known Family History: Positive: Cardiac Disease - father , Hypertension - Social History Lives: With Family Alcohol Use: Occasionally Alcohol Amount: Glass of wine Hx Substance Use: No Substance Use Type: Reports: None Hx Tobacco Use: Yes Smoking Status (MU): Former Smoker Type: Cigarettes Amount Used/How Often: 1 PPD Length of Time of Smoking/Using Tobacco: 5-6 years Have You Smoked in the Last Year: No Review of Systems Negative: Fever, Chills Negative: Erythema Negative: Sore Throat Positive: Palpitations, Chest Pain, Other - elevated BP Negative: Shortness Of Breath, Cough Negative: Abdominal Pain, Vomiting, Diarrhea, Nausea Negative: dysuria, hematuria Negative: Myalgia, Edema Negative: Rash Neurological: Negative - dizziness All Other Systems Reviewed And Are Negative: Yes Physical Exam - Summary Physical Exam Summary: Constitutional: Well-developed, Well-nourished, Alert. (-) Distressed Skin: Warm, Dry HENT: Normocephalic; Atraumatic Eyes: Conjunctiva normal Neck: Musculoskeletal ROM normal neck. (-) JVD, (-) Stridor, (-) Tracheal deviation Cardio: Rhythm regular, rate normal, Heart sounds normal; Intact distal pulses; The pedal pulses are 2+ and symmetric. Radial pulses are 2+ and symmetric. (-) Murmur Pulmonary/Chest wall: Effort normal. (-) Respiratory distress, (-) Wheezes, (-) Rales Abd: Soft, (-) Tenderness, (-) Distension, (-) Guarding, (-) Rebound Musculoskeletal: (-) Edema Lymph: (-) Cervical adenopathy Neuro: Alert, Oriented x3 Psych: Mood and affect Normal Triage Information Reviewed: Yes Vital Signs On Initial Exam: Initial Vitals Temp Pulse Resp BP Pulse Ox 99.2 F 78 20 155/64 97 11/27/17 17:30 11/27/17 17:30 11/27/17 17:30 11/27/17 17:30 11/27/17 17:30 Vital Signs Reviewed: Yes Diagnostics - Vital Signs Vital Signs Temp Pulse Resp BP Pulse Ox 11/27/17 17:30 99.2 F 78 20 155/64 97 - Laboratory Lab Results: Lab Results 11/27/17 11/27/17 11/27/17 Range/Units 18:50 18:50 18:50 WBC 8.1 (3.5-10.8) 10^3/ul RBC 4.82 (4.0-5.4) 10^6/ul Hgb 14.7 (14.0-18.0) g/dl Hct 43 (42-52) % MCV 88 (80-94) fL MCH 31 (27-31) pg MCHC 35 (31-36) g/dl RDW 15 (10.5-15) % Plt Count 196 (150-450) 10^3/ul MPV 8 (7.4-10.4) um3 Neut % (Auto) 63.9 (38-83) % Lymph % (Auto) 25.9 (25-47) % Charlton % (Auto) 8.3 (1-9) % Eos % (Auto) 1.6 (0-6) % Baso % (Auto) 0.3 (0-2) % Absolute Neuts (auto) 5.2 (1.5-7.7) 10^3/ul Absolute Lymphs (auto) 2.1 (1.0-4.8) 10^3/ul Absolute Monos (auto) 0.7 (0-0.8) 10^3/ul Absolute Eos (auto) 0.1 (0-0.6) 10^3/ul Absolute Basos (auto) 0 (0-0.2) 10^3/ul Absolute Nucleated RBC 0 10^3/ul Nucleated RBC % 0 Sodium 138 (133-145) mmol/L Potassium 4.5 (3.5-5.0) mmol/L Chloride 105 (101-111) mmol/L Carbon Dioxide 28 (22-32) mmol/L Anion Gap 5 (2-11) mmol/L BUN 19 (6-24) mg/dL Creatinine 0.82 (0.67-1.17) mg/dL Est GFR ( Amer) 115.4 (>60) Est GFR (Non-Af Amer) 89.7 (>60) BUN/Creatinine Ratio 23.2 H (8-20) Glucose 92 (70-100) mg/dL Hemoglobin A1c (4.0-5.6) % Lactic Acid 0.8 (0.5-2.0) mmol/L Calcium 9.1 (8.6-10.3) mg/dL Total Bilirubin 0.50 (0.2-1.0) mg/dL AST 17 (13-39) U/L ALT 13 (7-52) U/L Alkaline Phosphatase 46 (34-104) U/L Troponin I 0.00 (<0.04) ng/mL Total Protein 6.1 L (6.4-8.9) g/dL Albumin 3.7 (3.2-5.2) g/dL Globulin 2.4 (2-4) g/dL Albumin/Globulin Ratio 1.5 (1-3) Triglycerides 125 mg/dL Cholesterol 119 mg/dL LDL Cholesterol 55 mg/dL HDL Cholesterol 39.5 mg/dL 11/27/17 Range/Units 18:50 WBC (3.5-10.8) 10^3/ul RBC (4.0-5.4) 10^6/ul Hgb (14.0-18.0) g/dl Hct (42-52) % MCV (80-94) fL MCH (27-31) pg MCHC (31-36) g/dl RDW (10.5-15) % Plt Count (150-450) 10^3/ul MPV (7.4-10.4) um3 Neut % (Auto) (38-83) % Lymph % (Auto) (25-47) % Charlton % (Auto) (1-9) % Eos % (Auto) (0-6) % Baso % (Auto) (0-2) % Absolute Neuts (auto) (1.5-7.7) 10^3/ul Absolute Lymphs (auto) (1.0-4.8) 10^3/ul Absolute Monos (auto) (0-0.8) 10^3/ul Absolute Eos (auto) (0-0.6) 10^3/ul Absolute Basos (auto) (0-0.2) 10^3/ul Absolute Nucleated RBC 10^3/ul Nucleated RBC % Sodium (133-145) mmol/L Potassium (3.5-5.0) mmol/L Chloride (101-111) mmol/L Carbon Dioxide (22-32) mmol/L Anion Gap (2-11) mmol/L BUN (6-24) mg/dL Creatinine (0.67-1.17) mg/dL Est GFR ( Amer) (>60) Est GFR (Non-Af Amer) (>60) BUN/Creatinine Ratio (8-20) Glucose (70-100) mg/dL Hemoglobin A1c 5.9 H (4.0-5.6) % Lactic Acid (0.5-2.0) mmol/L Calcium (8.6-10.3) mg/dL Total Bilirubin (0.2-1.0) mg/dL AST (13-39) U/L ALT (7-52) U/L Alkaline Phosphatase (34-104) U/L Troponin I (<0.04) ng/mL Total Protein (6.4-8.9) g/dL Albumin (3.2-5.2) g/dL Globulin (2-4) g/dL Albumin/Globulin Ratio (1-3) Triglycerides mg/dL Cholesterol mg/dL LDL Cholesterol mg/dL HDL Cholesterol mg/dL Result Diagrams: 11/28/17 05:39 11/28/17 05:39 Lab Statement: Any lab studies that have been ordered have been reviewed, and results considered in the medical decision making process. - Radiology CXR Radiology Interpretation Completed By: Radiologist - No radiographic evidence for acute cardiopulmonary abnormality on this portable chest x-ray. ED physician has reviewed this radiology report. - EKG 17:34 Cardiac Rate: NL EKG Rhythm: Sinus Rhythm - at 75 BPM EKG Interpretation: No STEMI Re-Evaluation - Re-Evaluation First Eval Re-Evaluation Time: 20:00 Change: Improved Comment: The patient reports no pain. Chest Pain Course/Dx - Course Assessment/Plan: This patient is a 82 year old M presenting to [facility] accompanied by his with a chief complaint of CP since this afternoon. The patient rates the pain 3/10 in severity and describes it as a heavy heart. Patient reports elevated blood pressure and palpitations. Patient denies radiation of pain, LE pain, Le edema and cough. Patient has a history of HLD and HTN with a family history of CAD. CXR reveals, per radiologist, No radiographic evidence for acute cardiopulmonary abnormality on this. portable chest x-ray. Test results with no significant abnormalities. In the ED course the patient was given NTG and ASA. We discussed patient care with Dr. Jacome and he agreed to admit the patient. Patient will be admitted. The patient is agreeable with this plan. - Diagnoses Provider Diagnoses: Chest pain, unspecified - Provider Notifications Discussed Care Of Patient With: Kolton Jacome Time Discussed With Above Provider: 20:03 Instructed by Provider To: Admit As Inpatient Discharge - Discharge Plan Condition: Stable Disposition: ADMITTED TO [facility] The documentation as recorded by the Kristy bolden Gabriel accurately reflects the service I personally performed and the decisions made by me, Evan Riggins MD.
== END 2017-11-28 14:49 | disposition home or self-care (01) ==
LOC: ED 17:28 → MEDTELE 20:22
PROVIDERS: ADMIT Hospitalist; ATTEND Internal Medicine
DX: R07.9 Chest pain, unspecified (principal); I10 Essential (primary) hypertension; E03.9 Hypothyroidism, unspecified; E78.5 Hyperlipidemia, unspecified; F32.9 Major depressive disorder, single episode, unspecified; Z79.899 Other long term (current) drug therapy; Z87.891 Personal history of nicotine dependence
CPT/HCPCS: 36415; 71045; 78452; 80048; 80053; 80061; 83036; 83605; 83735; 84484; 85025; 93005; 93017; 96360; 96361; 96372; 99283; A9270-GY; A9502; G0378; J0280; J1644; J2785

== ENCOUNTER 2018-03-09 10:17 | Emergency (ER) | payer MEDICARE, OTHER ==
--- OUTSIDE RECORDS SUMMARY | 2018-03-09 10:45 | XMS REPORT ---
:1935 External Reference #:[id number] Author Organization [facility] Address [address] [place] [address] Phone [phone] Care Team Providers Name Role Phone Mariah Ellis M.D. Care Team Information Student Support Counselor Unavailable Payers Type Date Identification Numbers Payment Provider Subscriber Medicare Primary Policy Number: [id number] Medicare - [facility] Calixto Chencho PayID: [id number] [address] [place] [address] Medigap Part B Policy Number: [id number] For Life Calixto Paiz PayID: [id number] [address] [place] [address] Problems Date Description Provider Status Onset: 09/17/2015 Essential hypertension Sanket Jackson MD Active Onset: 09/17/2015 Depressive disorder Sanket Jackson MD Active Onset: 09/17/2015 Asthma Sanket Jackson MD Active Onset: 09/17/2015 Chronic sinusitis Sanket Jackson MD Active Family History Date Family Member(s) Problem(s) Comments Father Heart Disease Father Cancer, Unknown Site Mother Heart Disease Mother Cancer, Unknown Site Social History Type Date Description Comments Marital Status Remarried. Lives With Occupation Retired Hobbies Sailing, boats Hobbies yard work Cigarette Use Former Cigarette Smoker ETOH Use Occasionally consumes wine 1 glass of wine nightly Recreational Drug Use Never Used Drugs Smoking Patient is a former smoker Quit 40 yrs ago. Smoked for 22 years less than a pack a day Exercise Type/Frequency Exercises regularly Allergies, Adverse Reactions, Alerts Description No Information Medications Medication Date Status Form Strength Qnty SIG Indications Ordering Provider Crestor 02/12/ Active Tablets 10mg 30tab 1 po qd [facility] 2017 s Shortle, WEB PRESS ROLL TENDER Levothyroxine 02/12/ Active Tablets 25mcg 30tab 1 po qd [facility] Sodium 2017 s Shortle, WEB PRESS ROLL TENDER Metoprolol 02/12/ Active Tablets 50mg 60tab take one [facility] Tartrate 2017 s tablet by Shortle, mouth WEB PRESS ROLL TENDER twice a day Fluticasone 02/12/ Active Suspension 50mcg/Act 16gm 1 spray [facility] Propionate 2017 into each Shortle, nostril WEB PRESS ROLL TENDER once daily Losartan 02/12/ Active Tablets 50mg 30tab 1 by mouth [facility] Potassium 2017 s every day Shortle, WEB PRESS ROLL TENDER Nitroglycerin 02/12/ Active Tablets Sub 0.4mg 30tab 1 tab sl q [facility] 2017 s 5 minutes Shortle, prn angina WEB PRESS ROLL TENDER Proventil HFA 02/12/ Active Aerosol 108(90Bas 6.700 2 puffs q [facility] 2017 e) gm 4 hours Shortle, mcg/Act prn SOB, WEB PRESS ROLL TENDER wheezing Aspirin Adult 02/12/ Active Tablets DR 81mg 30tab 1 po qd [facility] Low Dose 2018 s Shortle, WEB PRESS ROLL TENDER Sertraline HCL 09/17/ Active Tablets 100mg 30tab 1 po qd [facility] 2014 s Shortle, WEB PRESS ROLL TENDER Multi Vitamin / Active Tablets 1 by mouth Unknown Daily 0000 every day Azithromycin 02/12/ Hx Tablets 250mg 6tabs 2 tabs J06.9 [facility] 2017 - today. 1 Shortle, 02/21/ tab daily WEB PRESS ROLL TENDER 2017 for the following 4 days. Micardis 02/12/ Hx Tablets 40mg 30tab 1 po qd [facility] 2017 - s Shortle, 02/21/ WEB PRESS ROLL TENDER 2018 Micardis 09/17/ Hx Tablets 80mg take 11/14 Sanket 2014 - tablet [place]derks 02/12/ daily , 2018 Crestor /00/ Hx Unknown - 2017 Aspirin Adult // Hx Unknown Low Dose - 2017 Nasonex /00/ Hx Unknown - 2017 Proventil HFA / Hx Unknown - 2017 Metoprolol / Hx Tablets ER 50mg 1 by mouth Unknown Succinate ER 0000 - 24HR every day 2017 Levothyroxine 00/00/ Hx Unknown Sodium 0000 - 2017 Immunizations CPT Code Status Date Vaccine Lot # [id number] Given 12/16/2017 Prevnar-13 Pneumococcal Conjugate Vaccine Vital Signs Date Vital Result Comment 02/21/2018 Weight 226.00 lb Weight in kg's 102.514 BP Systolic 110 mmHg BP Diastolic 60 mmHg Heart Rate 64 /min Body Temperature 97.9 F Respiratory Rate 16 /min Height 66 inches 5'6" BMI (Body Mass Index) 36.5 kg/m2 O2 % BldC Oximetry 94 % 96 02/12/2018 Weight 233.00 lb Weight in kg's 105.689 BP Systolic 130 mmHg BP Diastolic 60 mmHg Heart Rate 84 /min Body Temperature 98.3 F Respiratory Rate 16 /min O2 % BldC Oximetry 97 % 09/17/2015 Weight 226.00 lb Weight in kg's 102.514 BP Systolic 130 mmHg BP Diastolic 64 mmHg Heart Rate 88 /min Height 65.5 inches 5'5.50" BMI (Body Mass Index) 37.0 kg/m2 Results Description No Information Procedures Description No Information Encounters Type Date Location Provider CPT E/M Dx Office Visit 09/17/2015 11:00a [place] [address] I10 Plan of Care Future Appointment(s):05/07/2018 8:00 am - Bárbara Eaton WEB PRESS ROLL TENDER at Main Xkkwsf5302/28/2018 8:20 am - [facility] at Main Fnkkbw3402/21/2018 - Bárbara Eaton, NPR26.81 Unsteadiness on feetNew Therapy:Physical Therapy- Evaluate And TreatComments:No acute concerns today.Discussed exercises for balance and physical therapy. Patient will be referred to physical therapyFollow up:Refer to [facility] for balance sykohtQ81.9 Hypothyroidism, unspecifiedNew Labs:CBC Auto DiffComp Metabolic PanelTSH ( Thyroid Stim Horm)Comments:Will check TSH to assess No other concernsFollow up: Schedule physical in a few months to allow for time for drhqxxqX09 Essential ( primary) hypertensionComments:BP within normal limits todayTaking medications regularlyCBC and CMP ordered for puvmwnppezN63.4 Other hyperlipidemiaNew Labs: Lipid Profile (Trig/Chol/HDL)Liver Function PanelComments:Takes Crestor 10 mg Lipids and liver function tests orderedFollow up:schedule fasting labs nurse tymqlT34.1 Major depressive disorder, recurrent, moderateComments:Reports symptoms are well controlled on Sertraline 100 mg. No unltkmX22.5 Encounter for screening for malignant neoplasm of prostateNew Labs:PSA ScreeningComments: Discussed ordering labs and patient requests PSA be ordered for screening. KzjbzxzvmyzaU55.9 Acute upper respiratory infection, unspecifiedComments: Reports symptoms are improving. Patient has resp illness cyclically and we discussed allergy referral.Patient will be referred to archives director for testing and further evaluation.Follow up:Also refer to archives director for allergy testing
--- OUTSIDE RECORDS SUMMARY | 2018-03-09 10:46 | XMS REPORT ---
:1935 External Reference #:[id number] Author Organization [facility] Address [address] [address] Phone [phone] Care Team Providers Name Role Phone Amy Velazquez MD Primary Care Physician Unavailable Payers Type Date Identification Numbers Payment Provider Subscriber Medicare Primary Policy Number: [id number] Medicare Wilbur Paiz PayID: [id number] [address] [place] [address] [facility] Part B Policy Number: [id number] For Life Wilbur Paiz PayID: [id number] [address] [place] [address] Problems Date Description Provider Status Onset: 01/20/2015 Degeneration of lumbar intervertebral Glenn Olvera M.D. 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 Cigarette Use Quit in 1962 ETOH Use Occasionally consumes alcohol Smoking Patient is a former smoker Recreational Drug Use Denies Drug Use Smoking Heavy tobacco smoker (more 1PPD x 6 years than 10 cigarettes/day) Daily Caffeine Does Not Consume Caffeine Exercise Type/Frequency Exercises regularly 3 day/week at [employer] Allergies, Adverse Reactions, Alerts Date Description Reaction Status Severity Comments 01/20/2015 NKDA active Medications Medication Date Status Form Strength Qnty SIG Indications Ordering Provider Crestor 09/26/ Active Tablets 10mg 1 by Unknown 2016 mouth every day Ibuprofen 09/26/ Active Tablets as needed Unknown 2015 Sertraline HCL / Active Tablets 100mg 1 by Unknown 0000 mouth every day Aspir-81 / Active Tablets DR 81mg 1 by Unknown 0000 mouth every day Celadrin / Active Tablet 1 tab by Unknown 0000 mouth daily Levothyroxine / Active Tablets 25mcg 1 by Unknown Sodium 0000 mouth every day Nitrostat / Active Tablets Sub 0.4mg one sl Unknown 0000 q5min up to 3 doses as needed Multi Vitamin / Active Tablets 1 by Unknown 0000 mouth every day Metoprolol / Active Tablets ER 50mg 1 by Unknown Succinate ER 0000 24HR mouth every day Zypan / Active 2 po qam Unknown 0000 1 po qpm Enzycore / Active Capsules 2 po qam Unknown 0000 1 po qpm Cpap / Active Device for use Unknown 0000 while sleeping Fluticasone / Active Suspension 50mcg/Act 1 spray Trev, Propionate 0000 each MD Amy nostril once daily at bedtime Mucinex / Active Tablets ER 600mg 1 tablet Unknown 0000 12HR po daily Fluticasone 09/27/ Hx Suspension 50mcg/Act 32gm 2 sprays J30.9 Vivien Propionate 2015 - each Sharlene 12/04/ nostril 2017 everyday Proventil HFA 09/26/ Hx Aerosol 108(90Base 2 puffs Unknown 2015 - ) mcg/Act by mouth 12/04/ every 4 2018 hours Micardis / Hx Tablets 80mg 1 by Unknown 0000 - mouth 12/04/ every day 2017 Nasonex / Hx Suspension 50mcg/Act 2 sprays Unknown 0000 - to each 12/04/ nostril 2018 twice daily Losartan / Hx Tablets 50mg 1 by Unknown Potassium 0000 - mouth 02/11/ every day 2018 Metoprolol / Hx Tablets 50mg 1 by Unknown Tartrate 0000 - mouth 12/12/ twice a 2018 day Metoprolol / Hx Tablets 50mg 1 by Unknown Tartrate 0000 - mouth 12/11/ twice a 2018 day Vital Signs Date Vital Result Comment 02/12/2018 Height 67 inches 5'7" Weight 234.25 lb with shoes Heart Rate 80 /min BP Systolic Sitting 130 mmHg L/A reg cuff BP Diastolic Sitting 58 mmHg L/A reg cuff BP Systolic Standing 128 mmHg L/A reg cuff BP Diastolic Standing 58 mmHg L/A reg cuff BMI (Body Mass Index) 36.7 kg/m2 Ejection Fraction 60%-65% echo 01/28/2018 12/12/2017 Height 67 inches 5'7" Weight 229.50 lb Heart Rate 82 /min BP Systolic Sitting 120 mmHg LA, reg BP Diastolic Sitting 60 mmHg LA, reg BMI (Body Mass Index) 35.9 kg/m2 09/27/2016 Height 67 inches 5'7" Weight 210.00 lb Heart Rate 76 /min BP Systolic Sitting 128 mmHg BP Diastolic Sitting 76 mmHg Respiratory Rate 16 /min O2 % BldC Oximetry 96 % BMI (Body Mass Index) 32.9 kg/m2 Neck Circumference in inches 19.25 01/20/2015 Height 67 inches 5'7" Weight 225.00 lb Heart Rate 66 /min BP Systolic Sitting 130 mmHg BP Diastolic Sitting 82 mmHg Pain Level 4 back BMI (Body Mass Index) 35.2 kg/m2 Results Description No Information Procedures Date CPT Code Description Status 01/28/2018 47351 ECHO Transthoracic, Real-Time 2D With Doppler And Color Completed Flow 01/28/2018 70184 ECHO Transthoracic, Real-Time 2D With Doppler And Color Completed Flow 12/15/2017 12093 Holter Monitor Review (24 hr)dr review & interp Completed only 12/12/2017 59565 EKG Tracing & Interpretation Completed 11/28/2017 60697 Treadmill Interp/Report Only Completed 11/28/2017 19938 Stress Test Supervsn W/Out I/R Completed 10/10/2016 96981 Polysomnography Sleep Staging 4+ Parameters W/Cpap Completed Encounters Type Date Location Provider CPT E/M Dx Office Visit 02/12/2018 3:00p [facility] yancy Wiggins, [address] I49.3 M.DColby R00.2 E78.5 I10 G47.33 I71.9 [facility] [address] R07.9 Samir R00.2 E78.5 I10 R94.31 Office Visit 11/27/2017 7:27a [facility] LIVIA Bey [address] R07.9 Hospitalists E78.5 F33.2 I10 Office Visit 09/27/2016 8:45a [place] [address] G47.33 [facility] J30.9 E66.09 Z68.32 Office Visit 01/20/2015 10:00a Neurosurgery Services Glenn Olvera, [address] 722.52 Of Latia Dawson Plan of Care 02/12/2018 - Nathan Wiggins M.D.I49.3 Ventricular premature depolarizationNew Orders:24 hour holter monitorFollow up:6 months Milana one yr ov with meR00.2 KjxfyvafwhqxS04.5 Hyperlipidemia, gughetphmhmY05 Essential ( primary) jtdabxnbdibzP63.33 Obstructive sleep apnea (adult) (pediatric)I71.9 Aortic aneurysm of unspecified site, without rupture
--- OUTSIDE RECORDS SUMMARY | 2018-03-09 10:46 | XMS REPORT ---
:1935 External Reference #:[id number] Author Organization [facility] Address [address] [place] [address] Phone [phone] Care Team Providers Name Role Phone Mariah Ellis M.D. Care Team Information Auxiliary Plant Operator Unavailable Payers Type Date Identification Numbers Payment Provider Subscriber Medicare Primary Policy Number: [id number] Medicare - [facility] Calixto Chencho PayID: [id number] [address] [place] [address] Medigap Part B Policy Number: [id number] For Life Claixto Paiz PayID: [id number] [address] [place] [address] Problems Date Description Provider Status Onset: 09/17/2015 [...] Sailing, boats Hobbies yard work Cigarette Use Never Smoked Cigarettes ETOH Use Occasionally consumes wine 1 glass of wine nightly Recreational Drug Use Never Used Drugs Exercise Type/Frequency Exercises regularly Allergies, Adverse Reactions, Alerts Description No Information Medications Medication Date Status Form Strength Qnty SIG Indications Ordering Provider Azithromycin 02/12/ Active Tablets 250mg 6tabs 2 tabs J06.9 Bárbara 2017 today. 1 Shortle, tab daily GILL BOX OPERATOR for the following 4 days. Crestor 02/12/ Active Tablets 10mg 30tab 1 po qd [facility] 2017 s Shortle, GILL BOX OPERATOR Levothyroxine 02/12/ Active Tablets 25mcg 30tab 1 po qd [facility] Sodium 2017 s Shortle, GILL BOX OPERATOR Metoprolol 02/12/ Active Tablets 50mg 60tab take one [facility] Tartrate 2017 s tablet by Shortle, mouth GILL BOX OPERATOR twice a day Micardis 02/12/ Active Tablets 40mg 30tab 1 po qd [facility] 2017 s Shortle, GILL BOX OPERATOR Fluticasone 02/12/ Active Suspension 50mcg/Act 16gm 1 spray [facility] Propionate 2017 into each Shortle, nostril GILL BOX OPERATOR once daily Losartan 02/12/ Active Tablets 50mg 30tab 1 by mouth [facility] Potassium 2017 s every day Shortle, GILL BOX OPERATOR Nitroglycerin 02/12/ Active Tablets Sub 0.4mg 30tab 1 tab sl q [facility] 2017 s 5 minutes Shortle, prn angina GILL BOX OPERATOR Proventil HFA 02/12/ Active Aerosol 108(90Bas 6.700 2 puffs q [facility] 2017 e) gm 4 hours Shortle, mcg/Act prn SOB, GILL BOX OPERATOR wheezing Aspirin Adult 02/12/ Active Tablets DR 81mg 30tab 1 po qd [facility] Low Dose 2017 s Shortle, GILL BOX OPERATOR Sertraline HCL 09/17/ Active Tablets 100mg 30tab 1 po qd [facility] 2014 s Shortle, GILL BOX OPERATOR Multi Vitamin / Active Tablets 1 by mouth Unknown Daily 0000 every day Micardis 09/17/ Hx Tablets 80mg take 11/14 Sanket 2015 - tablet Hebrandan 02/12/ daily MD 2018 Crestor 00/00/ Hx Unknown - 2017 Aspirin Adult /00/ Hx Unknown Low Dose 2017 Nasonex 00/00/ Hx Unknown - 2017 Proventil HFA 00/ Hx Unknown - 2017 Metoprolol / Hx Tablets ER 50mg 1 by mouth Unknown Succinate ER 0000 - 24HR every day 2017 Levothyroxine 00/00/ Hx Unknown Sodium - 2017 Immunizations CPT Code Status Date Vaccine Lot # [id number] Given 12/16/2017 Prevnar-13 Pneumococcal Conjugate Vaccine Vital Signs Date Vital Result Comment 02/12/2018 Weight 233.00 lb Weight in kg's [...] 09/17/2015 11:00a [place] [address] I10 Plan of Care Future Appointment(s):02/21/2018 2:30 pm - Bárbara Eaton NP at Main Qckpga7902/12/2018 - Bárbara Eaton NPJ06.9 Acute upper respiratory infection, unspecifiedNew Medication:Azithromycin 250 mgComments:No acute concerns today.Discussed Xray which patient declined. Due to duration and double worsening,abx ordered. Instructed on proper use of rescue inhalerEducated on supportive careEducated on new/worsening symptoms and when to call/return. Patient stated understanding and agrees to planI10 Essential (primary) hypertensionComments:Patient is transferring to our office for care and is requesting refills on medications.Will [id number] days and in the meantime patient will need physical.E03.9 Hypothyroidism, unspecifiedComments:As above
[2018-03-09] MEDS ORDERED: Tetan/Diph/Pertus SYR(Tdap)* 0.5 ML SYR(BOOSTRIX) use SYR IM ONE (11:02)
[2018-03-09] MEDS ORDERED: Lidocaine 1%* 5 ML VIAL INJ ONE (11:04)
[2018-03-09 12:12] VITALS: BP 00/00
--- NOTE | 2018-03-09 12:27 | ED ---
Laceration/Wound HPI - HPI Summary HPI Summary: Patient is an 82-year-old male who presents emergency department for laceration to his left hand that occurred just prior to arrival. Patient states he was walking up the steps to his house wearing slippers when he tripped on the steps , fell and struck his hand on a fence. Denies striking his head or loss of consciousness. He is not anticoagulated. He is unaware of his last tetanus immunization. Symptoms are mild in severity. Touching the affected area makes symptoms worse. Rest makes symptoms better. - History of Current Complaint Stated Complaint: RT HAND LAC Time Seen by Provider: 03/09/18 10:46 Hx Obtained From: Patient, Family/Linoleum Layer Apprentice Pain Intensity: 3 Pain Scale Used: 0-10 Numeric - Allergy/Home Medications Allergies/Adverse Reactions: Allergies Allergy/AdvReac Type Severity Reaction Status Date / Time No Known Allergies Allergy Verified 03/09/18 10:38 PMH/Surg Hx/FS Hx/Imm Hx Previously Healthy: Yes Endocrine/Hematology History: Denies: Hx Diabetes, Hx Thyroid Disease Cardiovascular History: Reports: Hx Angina, Hx Hypercholesterolemia, Hx Hypertension - meds Denies: Hx Pacemaker/ICD Respiratory History: Reports: Hx Asthma - prior to WW II Denies: Hx Chronic Obstructive Pulmonary Disease (COPD) GI History: Denies: Hx Ulcer History: Denies: Hx Renal Disease Sensory History: Reports: Hx Contacts or Glasses Denies: Hx Hearing Aid Opthamlomology History: Reports: Hx Contacts or Glasses Psychiatric History: Reports: Hx Depression Denies: Hx Panic Disorder - Cancer History Cancer Type, 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 SINUS Infectious Disease History: No Infectious Disease History: Denies: Hx Clostridium Difficile, Hx Hepatitis, Hx Human Immunodeficiency Virus (HIV), Hx of Known/Suspected MRSA, Hx Shingles, Hx Tuberculosis, Hx Known/ Suspected VRE, Hx Known/Suspected VRSA, History Other Infectious Disease, Traveled Outside the [place] in Last 30 Days - Family History Known Family History: Positive: Cardiac Disease - father , Hypertension - Social History Occupation: Retired Lives: With Family Alcohol Use: Occasionally Alcohol Amount: Glass of wine Hx Substance Use: No Substance Use Type: Reports: None Hx Tobacco Use: Yes Smoking Status (MU): Former Smoker Type: Cigarettes Amount Used/How Often: 1 PPD Length of Time of Smoking/Using Tobacco: 5-6 years Have You Smoked in the Last Year: No Review of Systems Positive: Other - laceration to left hand All Other Systems Reviewed And Are Negative: Yes Physical Exam Triage Information Reviewed: Yes Vital Signs On Initial Exam: Initial Vitals Temp Pulse Resp BP Pulse Ox 97.3 F 64 15 114/51 96 03/09/18 10:27 03/09/18 10:27 03/09/18 10:27 03/09/18 10:27 03/09/18 10:27 Vital Signs Reviewed: Yes Appearance: Positive: Well-Appearing - Patient sitting in bed in no acute distress. Very talkative. Pleasant. Significant other present. Skin: Positive: Warm, Dry Head/Face: Positive: Normal Head/Face Inspection Eyes: Positive: Normal Musculoskeletal: Positive: Other - 1.5cm cresent shaped full thickness laceration noted over the left thenar eminence. No muscle exposured. No bony tenderness. Tendons are intact. Procedures - Laceration/Wound Repair 1 Location: upper extremity - Left hand Anesthesia: Local, 1.0%, Lido Length, Depth and Shape: 1.5cm cresent shape. Full thickness into adipose tissue Betadine Prep?: No - Hibiclens used Irrigated w/ Saline (ccs): 500 - o Laceration/Wound Explored: clean, no foreign body removed Closure: Single Layer Suture Type: Nylon Number of Sutures: 4 Layer Closure?: No Sterile Dressing Applied?: Yes Diagnostics - Vital Signs Vital Signs Temp Pulse Resp BP Pulse Ox 03/09/18 12:11 0 F 0 18 00/00 0 03/09/18 10:27 97.3 F 64 15 114/51 96 - Laboratory Lab Statement: Any lab studies that have been ordered have been reviewed, and results considered in the medical decision making process. Laceration Repair Course/Dx - Course Course Of Treatment: Pt. presenting to the ER for a simple hand laceration. Tetanus was updated. Wound was extensively irrigated, cleaned and repaired as noted. Will prophylactically cover with Keflex given mechanism and potential for infection. Advised suture removal in 7-10 days. Keep the wound clean and dry. To return here for redness, swelling or drainage from wound. Patient understands and agrees with plan. - Differential Dx Differental Diagnoses: Foreign Body, Joint Infection, Puncture Wound, Tendon Laceration - Clinical Impression Provider Diagnoses: Hand laceration Discharge - Sign-Out/Discharge Documenting (check all that apply): Discharge/Admit/Transfer - Discharge Plan Condition: Good Disposition: HOME Prescriptions: Cephalexin CAP* [Keflex CAP*] 500 mg PO BID 10 Days #20 cap Patient Education Materials: Care For Your Stitches (ED) Referrals: Mariah Ellis MD [Primary Care Provider] - Additional Instructions: Suture removal in 7-10 days Keep wound clean and dry Keflex as directed Return to ER for redness, swelling or drainage from wound - Billing Disposition and Condition Condition: GOOD Disposition: HOME
== END 2018-03-09 12:11 | disposition home or self-care (01) ==
LOC: ED 10:17
DX: S61.412A Laceration without foreign body of left hand, initial encounter (principal); W01.198A Fall on same level from slipping, tripping and stumbling with subsequent striking against other object, initial encounter; Y93.89 Activity, other specified; Y92.008 Other place in unspecified non-institutional (private) residence as the place of occurrence of the external cause; Z23 Encounter for immunization; I20.9 Angina pectoris, unspecified; I10 Essential (primary) hypertension; E78.00 Pure hypercholesterolemia, unspecified; J45.909 Unspecified asthma, uncomplicated; F32.9 Major depressive disorder, single episode, unspecified; Z96.653 Presence of artificial knee joint, bilateral; Z87.891 Personal history of nicotine dependence
CPT/HCPCS: 12001; 90471; 90715; 99282

== ENCOUNTER 2018-05-05 10:34 | Emergency (ER) | payer MEDICARE, OTHER ==
[2018-05-05 10:45] VITALS: BP 112/56
--- NOTE | 2018-05-05 10:52 | UC ---
Respiratory Complaint HPI - HPI Summary HPI Summary: 83 yo male presents with productive cough and chest congestion for 1 week getting progressively worse. He tells me that for the last few years he will get PNA once or twice a year. He is currently undergoing testing with an regulatory law specialist and his PCP for this. Denies fever, chills, sore throat, SOB, chest pain. - History of Current Complaint Hx Obtained From: Patient Onset/Duration: Gradual Onset Severity Currently: None Pain Intensity: 0 Character: Cough: Productive <Jostin Andrade - Last Filed: 05/05/18 11:25> <Glenn Mullins - Last Filed: 05/05/18 13:53> - History of Current Complaint Chief Complaint: UCRespiratory Stated Complaint: CHEST CONGESTION Time Seen by Provider: 05/05/18 10:52 - Allergies/Home Medications Allergies/Adverse Reactions: Allergies Allergy/AdvReac Type Severity Reaction Status Date / Time No Known Allergies Allergy Verified 05/05/18 10:45 PMH/Surg Hx/FS Hx/Imm Hx Endocrine History: Hypothyroidism Cardiovascular History: Cardiac Disease, Hypertension Psychological History: Depression - Surgical History Surgical History: Yes Surgery Procedure, Year, and Place: Bilateral Knees- REPLACEMENTS, [place], . SINUS - Family History Known Family History: Positive: Cardiac Disease - father , Hypertension - Social History Occupation: Retired Lives: With Family Alcohol Use: Occasionally Alcohol Amount: Glass of wine Substance Use Type: None Smoking Status (MU): Former Smoker Type: Cigarettes Amount Used/How Often: 1 PPD Length of Time of Smoking/Using Tobacco: 5-6 years Have You Smoked in the Last Year: No - Immunization History Most Recent Influenza Vaccination: 08/2014 <Jostin Andrade - Last Filed: 05/05/18 11:25> Review of Systems Constitutional: Negative Skin: Negative Eyes: Negative ENT: Negative Respiratory: Cough Cardiovascular: Negative Gastrointestinal: Negative Neurovascular: Negative Neurological: Negative Psychological: Negative All Other Systems Reviewed And Are Negative: Yes <Jostin Andrade - Last Filed: 05/05/18 11:25> Physical Exam - Summary Physical Exam Summary: GENERAL: NAD. WDWN. No pain distress. SKIN: No rashes, sores, lesions, or open wounds. HEENT: Head: AT/NC Eyes: Conjunctiva clear without inflammation or discharge. Ears: Hearing grossly normal. TMs intact, no bulging, erythema, or edema. Nose: Nasal mucosa pink and moist. NTTP maxillary and frontal sinus. Throat: Posterior oropharynx without exudates, erythema, or tonsillar enlargement. Uvula midline. NECK: Supple. Nontender. No lymphadenopathy. CHEST: Mild wheezing RLL. No r/r. No accessory muscle use. Breathing comfortably and in no distress. CV: RRR. Without m/r/g. Pulses intact. Brisk cap refill. NEURO: Alert. CN II-XII grossly intact. PSYCH: Age appropriate behavior. Triage Information Reviewed: Yes Vital Signs: Initial Vital Signs Temp 97.7 F 05/05/18 10:43 Pulse 64 05/05/18 10:43 Resp 15 05/05/18 10:43 BP 112/56 05/05/18 10:43 Pulse Ox 98 05/05/18 10:43 <Jostin Andrade - Last Filed: 05/05/18 11:25> Vital Signs: Initial Vital Signs Temp 97.7 F 05/05/18 10:43 Pulse 64 05/05/18 10:43 Resp 15 05/05/18 10:43 BP 112/56 05/05/18 10:43 Pulse Ox 98 05/05/18 10:43 <Glenn Mullins - Last Filed: 05/05/18 13:53> Diagnostic Evaluation - Laboratory O2 Sat by Pulse Oximetry: 98 <Jostin Andrade - Last Filed: 05/05/18 11:25> Respiratory Course/Dx - Course Course Of Treatment: Bronchitis - he says that he takes the zpak with good relief. - Differential Dx/Diagnosis Provider Diagnoses: Bronchitis <Jostin Andrade Last Filed: 05/05/18 11:25> Discharge - Sign-Out/Discharge Documenting (check all that apply): Discharge/Admit/Transfer - Billing Disposition and Condition Condition: STABLE Disposition: Home <Jostin Andrade Last Filed: 05/05/18 11:25> - Billing Disposition and Condition Condition: STABLE Disposition: Home <Glenn Mullins - Last Filed: 05/05/18 13:53> - Discharge Plan Condition: Stable Disposition: HOME Referrals: Mariah Ellis MD [Primary Care Provider] - Additional Instructions: If you develop a fever, shortness of breath, chest pain, new or worsening symptoms - please call your PCP or go to the ED. Per institutional requirements, I have reviewed the chart, however, I was not consulted specifically or made aware of this patient by the above midlevel provider. I did not personally evaluate, interact with , or disposition this patient.
== END 2018-05-05 11:06 | disposition home or self-care (01) ==
LOC: UCEAST 10:34
DX: J40 Bronchitis, not specified as acute or chronic (principal); I10 Essential (primary) hypertension; Z87.891 Personal history of nicotine dependence
CPT/HCPCS: 99212; G0463